=== PATIENT | female | born 1955 | race Caucasian/White ===

== ENCOUNTER 2019-01-15 16:04 | Emergency (ER) | payer BC, MEDICARE ==
--- OUTSIDE RECORDS SUMMARY | 2019-01-15 16:12 | XMS REPORT | Continuity of Care Document ---
:1955 External Reference #:[id number] Author Name Dyan Paniagua O.D. 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 Onset: 06/16/2015 Presbyopia Dyan Paniagua O.D. Onset: 06/16/2015 Other migraine, not intractable, without Dyan Paniagua O.D. Onset: 2015 status migrainosus Nuclear senile cataract Dyan Paniagua O.D. Onset: 07/25/2017 Internal hordeolum Dyan Paniagua O.D. Onset: 07/25/2017 Family History Date Family Member(s) Observation Comments Father Cataract Mother Cataract Aunt Glaucoma Social History Type Date Description Comments Sex Unknown Marital Status Has been 1 time Occupation self employed Work Status Full-Time Employment ETOH Use Denies alcohol use Tobacco Use Start: Unknown Patient has never smoked Recreational Drug Use Denies Drug Use Smoking Status Reviewed: 12/24/18 Patient has never smoked Allergies, Adverse Reactions, Alerts Active Allergies Reaction Severity Comments Date Demerol 06/15/2015 Vicryl Sutures 06/15/2015 Medications Active Medications SIG Qnty Indications Ordering Provider Date Atorvastatin Calcium Unknown 10mg Tablets Vitamin D every other day Unknown (Ergocalciferol) 2000 Capsules Estradiol Unknown 0.5mg Tablets Flonase Allergy Relief prn Unknown 50mcg/Act Suspension Calcium 600 High every day Unknown Potency 600mg Tablets History Medications Erythromycin apply thin strip 1Tubes H00.025 Dyan Paniagua, 07/25/2017 - 5mg/GM to all four O.D. 07/27/2018 Ointment eyelid margins at night Procedures Date Code Description Status 07/28/2018 72545 Determination Of Refractive State Completed 07/28/2018 95352 Est Patient Comprehensive Exam Completed 07/25/2017 99715 Fundus Photography With Interpretation And Report Completed 07/25/2017 42073 Determination Of Refractive State Completed 07/25/2017 01980 Est Patient Comprehensive Exam Completed 06/21/2016 49299 Determination Of Refractive State Completed 06/21/2016 80120 Est Patient Comprehensive Exam Completed 06/16/2015 95061 Determination Of Refractive State Completed 06/16/2015 40943 Est Patient Comprehensive Exam Completed 06/16/2014 83552 Est Patient Intermediate Exam Completed 12/14/2013 91894 Est Patient Intermediate Exam Completed 09/17/2013 16812 Scanning Computerized Opthalmic Diagnostic Posterior Seg Completed Retina 09/17/2013 42324 New Patient Comprehensive Exam Completed 09/11/2009 42504 Determination Of Refractive State Completed 09/11/2009 74519 New Patient Comprehensive Exam Completed Plan of Treatment Future Appointment(s):07/28/2019 9:00 am - Dyan Paniagua O.D. at [facility] Sanz MD, 12/24/2018 - Dyan Paniagua O.D.H52.4 PresbyopiaComments:Smoking can increase the risk of developing or worsening any eye related disease, as well as affect your overall health. If you are a smoker, we strongly recommend that you quit.If you are not a smoker, we strongly recommend that you do not start. You have presbyopia. This is when the lens in your eye loses the ability to change focus, and happens as we age. A pair of reading glasses will help you see up close.H52.223 Regular astigmatism, bilateralComments: Astigmatism is a common vision condition that happens when a person's cornea is not symmetrical. Dr. Paniagua has given you a prescription to correct for this.
--- OUTSIDE RECORDS SUMMARY | 2019-01-15 16:13 | XMS REPORT | Continuity of Care Document ---
:1955 External Reference #:[id number] Author Name Dyan Paniagua O.D. Address [address] [place] [address] Care Team Providers Name Role Phone Brandon Alstonaurelia Primary Care Physician Unavailable Payers Date Identification Numbers Payment Provider Subscriber Policy Number: [id number] [facility] Dot Jones PayID: [id number] [address] [address] [place] [address] Problems Active Problems Provider Date Hypermetropia Onset: [...] night Procedures Date Code Description Status 07/28/2018 95426 Determination Of Refractive State Completed 07/28/2018 63273 Est Patient Comprehensive Exam Completed 07/25/2017 76842 Fundus Photography With Interpretation And Report Completed 07/25/2017 92848 Determination Of Refractive State Completed 07/25/2017 69141 Est Patient Comprehensive Exam Completed 06/21/2016 18577 Determination Of Refractive State Completed 06/21/2016 70390 Est Patient Comprehensive Exam Completed 06/16/2015 03198 Determination Of Refractive State Completed 06/16/2015 88366 Est Patient Comprehensive Exam Completed 06/16/2014 65866 Est Patient Intermediate Exam Completed 12/14/2013 67246 Est Patient Intermediate Exam Completed 09/17/2013 46722 Scanning Computerized Opthalmic Diagnostic Posterior Seg Completed Retina 09/17/2013 97681 New Patient Comprehensive Exam Completed 09/11/2009 75058 Determination Of Refractive State Completed 09/11/2009 95479 New Patient Comprehensive Exam Completed Plan of Treatment Future Appointment(s):07/28/2019 9:00 am - Dyan Paniagua O.D. at [facility], [facility]
[2019-01-15 16:40] VITALS: BP 00/00
[2019-01-15] MEDS ORDERED: Tetan/Diph/Pertus SYR(Tdap)* 0.5 ML SYR(BOOSTRIX) use SYR IM ONE (17:07)
--- NOTE | 2019-01-15 17:17 | UC ---
Bite Injury/Animal HPI - HPI Summary HPI Summary: Patient took her cat to the vet today and during the examination the cat bit the patient's right hand over the thenar eminence. She is here for tetanus booster. Is also concerned that it might be becoming infected as the area has become red and swollen. - History of Current Complaint Chief Complaint: UCBiteInjury Stated Complaint: CAT BITE Time Seen by Provider: 01/15/19 17:07 Hx Obtained From: Patient Severity Currently: Moderate Severity Initially: Moderate Pain Intensity: 3 Pain Scale Used: 0-10 Numeric Onset/Duration: Sudden Onset, Lasting Hours, Still Present Type of Bite: Pet Has Animal Been Immunized?: Yes Character: Puncture Aggravating Factor(s): Nothing Alleviating Factor(s): Nothing Associated Signs And Symptoms: Positive: Erythema, Swelling. Negative: Fever Animal Available for Observation: Yes - Allergies/Home Medications Allergies/Adverse Reactions: Allergies Allergy/AdvReac Type Severity Reaction Status Date / Time meperidine [From Demerol] Allergy Mild Nausea Verified 01/15/19 16:43 Opioids - Morphine Analogues Allergy Nausea Verified 01/15/19 16:43 vicryl suture Allergy Severe See Comment Uncoded 01/15/19 16:43 Home Medications: Home Medications Atorvastatin* [Lipitor 10 MG*] 10 mg PO 1700 01/15/19 [History Confirmed ] Calcium Carb/Vitamin D3/Vit K1 [Calcium + D Soft Chewable Tab] 1 chw PO DAILY [History Confirmed 01/15/19] Cholecalciferol (Vitamin D3) [Vitamin D3] 1,000 unit PO DAILY 01/15/19 [History Confirmed 01/15/19] Estradiol TAB(NF) 0.5 mg PO DAILY 01/15/19 [History Confirmed 01/15/19] PMH/Surg Hx/FS Hx/Imm Hx Previously Healthy: Yes - Surgical History Surgical History: Yes Surgery Procedure, Year, and Place: oophrectomy, hysterectomy, tubal, bunion repair, bladder reposition, neck lift - Family History Known Family History: Positive: Non-Contributory - Social History Alcohol Use: None Substance Use Type: None Smoking Status (MU): Never Smoked Tobacco - Immunization History Most Recent Tetanus Shot: cannot remember ever having one Review of Systems All Other Systems Reviewed And Are Negative: Yes Constitutional: Positive: Negative Skin: Positive: Other - PUNCTURE WOUNDS RIGHT THENAR EMINENCE Respiratory: Positive: Negative Cardiovascular: Positive: Negative Gastrointestinal: Positive: Negative Musculoskeletal: Positive: Decreased ROM, Edema. Negative: Arthralgia Physical Exam Triage Information Reviewed: Yes Appearance: Well-Appearing, No Pain Distress, Well-Nourished Vital Signs: Initial Vital Signs Temp 98.1 F 01/15/19 16:32 Pulse 84 01/15/19 16:32 Resp 16 01/15/19 16:32 BP 00/00 01/15/19 16:32 Pulse Ox 99 01/15/19 16:32 Vital Signs Reviewed: Yes Eyes: Positive: Conjunctiva Clear ENT: Positive: Hearing grossly normal Neck: Positive: Supple Respiratory: Positive: No respiratory distress, No accessory muscle use Cardiovascular: Positive: Pulses Normal Abdomen Description: Positive: Soft Musculoskeletal: Positive: ROM Intact, Edema @ - RIGHT THENAR EMINENCE, Other: - NO BONY TENDERNESS Neurological: Positive: Alert Psychological: Positive: Age Appropriate Behavior Skin: Positive: Other - ERYTHEMA AND MILD EDEMA RIGHT THENAR EMINENCE WITH 2 PUNCTURE WOUNDS. NO DRAINAGE Bite Injury Course/Dx - Course Course Of Treatment: TDAP BOOSTED. AUGMENTIN TWICE DAILY X 10 DAYS. OTC MEDS NEEDED FOR PAIN. DISCUSSED OBTAINING X-RAY OF THUMB BITE IS CLOSE TO MCP JOINT. PATIENT STATES SHE IS NOT CONCERNED ABOUT ANY BONY INJURY AND DECLINES X-RAY TODAY. F/ U IF NEEDED. - Differential Dx/Diagnosis Provider Diagnosis: Cat bite of right hand with infection Discharge - Sign-Out/Discharge Documenting (check all that apply): Patient Departure All imaging exams completed and their final reports reviewed: No Studies - Discharge Plan Condition: Stable Disposition: HOME Prescriptions: Amoxicillin/Clavulanate TAB* [Augmentin TAB 875*] 875 mg PO BID #20 tab Patient Education Materials: Animal Bite (ED) Referrals: [facility] [Outside] - If Needed Additional Instructions: TAKE THE ANTIBIOTICS FOR THE FULL 10 DAYS. YOUR TDAP WAS BOOSTED TODAY. GO TO THE ER WITHOUT FAIL IF YOU DEVELOP WORSENING PAIN, REDNESS, SWELLING, PURULENT DISCHARGE, FEVER OR ANY OTHER CONCERNING SYMPTOMS THAT MAY INDICATE YOU HAVE FAILED OUTPATIENT ANTIBIOTICS. CALL THE NUMBER BELOW FOR ASSISTANCE IN ESTABLISHING WITH A PCP An additional resource available to assist in finding the appropriate physician for your health care needs is the [facility] (Jessica Yeager). You may contact them by calling [phone]. TETANUS IMMUNIZATION GIVEN (TDAP): You have been given an immunization against tetanus. Please record this in your records. In general, a booster is needed only once every 10 years. The tetanus shot protects against tetanus or "lockjaw," which is a complication of certain wound infections (the tetanus shot cannot protect against the actual infection). The immunization site may become warm and red due to local reaction. If this occurs, apply warm compresses and take aspirin or ibuprofen to reduce inflammation and discomfort. Return for evaluation if the reaction becomes severe. - Billing Disposition and Condition Condition: STABLE Disposition: Home
== END 2019-01-15 17:28 | disposition home or self-care (01) ==
LOC: UCEAST 16:04
DX: S61.451A Open bite of right hand, initial encounter (principal); L08.9 Local infection of the skin and subcutaneous tissue, unspecified; W55.01XA Bitten by cat, initial encounter; Y92.531 Health care provider office as the place of occurrence of the external cause; Z88.5 Allergy status to narcotic agent
CPT/HCPCS: 90471; 90715; 99201; G0463